=== PATIENT | male | born 1955 ===

== ENCOUNTER 2017-10-07 00:27 | Inpatient (IN) ==
[2017-10-07] MEDS ORDERED: ONDANSETRON 4 MG/2 ML VIAL IV PRN (01:35)
[2017-10-07] MEDS ORDERED: MORPHINE 2 MG/1 ML SYRINGE IV PRN (01:35)
[2017-10-07] MEDS: DEXTROSE 5% LACTATED RINGERS 1,000 ML IV SCH ×3 (03:11→21:00)
[2017-10-07 06:51] LABS: Basophils % 0.2 % (0.0-0.8); Eosinophils % 0.3 % (0.00-10.9); Hematocrit 39.7 VOL% (42.0-52.0); Immature Granulocytes % 0.4 %; Immature Granulocytes Absolute 0.04 #; Lymphocytes # 1.1 10*3/uL (1.4-4.0); Lymphocytes % 10.5 % (21.2-54.2); Mean Corpuscular HGB Conc 32.7 GM/DL (32-36); Mean Corpuscular Hemoglobin 30 PG (27-34); Mean Corpuscular Volume 91.9 FL (87-102); Mean Platelet Volume 10.7 FL (9.6-12.0); Monocytes # 1.1 10*3/uL (0.11-0.8); Monocytes % 10.9 % (1.7-12.7); Neutrophils % 77.7 % (38.7-73.9); Platelet Count 252 T/CUMM (130-400); Red Blood Count 4.32 MC/CUMM (3.8-5.5); White Blood Count 10.3 T/CUMM (4-12)
[2017-10-07] MEDS: metroNIDAZOLE INJ 500 MG in PREMIX 1 EACH IV SCH ×4 (07:15→23:34)
[2017-10-07] MEDS: cefOXitin 1,000 MG in SYRINGE 1 EACH IV SCH ×4 (07:17→23:31)
[2017-10-07 07:22] LABS: Albumin 3.5 G/DL (3.4-5.0); Bilirubin,Total 1.2 MG/DL (0.2-1.0); Calcium 8.8 MG/DL (8.5-10.1); Osmolality,Calculated 282.3 MOS/KG (273-304); Total Protein 7.8 G/DL (6.4-8.3)
[2017-10-07] MEDS: PANTOPRAZOLE 40 MG TABLET PO SCH (11:18)
[2017-10-08] MEDS: cefOXitin 1,000 MG in SYRINGE 1 EACH IV SCH ×3 (06:05→18:16)
[2017-10-08] MEDS: metroNIDAZOLE INJ 500 MG in PREMIX 1 EACH IV SCH ×3 (06:08→18:20)
[2017-10-08 07:17] LABS: PT Patient Result 10.7 SECS; Partial Thromboplastin Time 27.8 SECS (0-40)
[2017-10-08] MEDS: PANTOPRAZOLE 40 MG TABLET PO SCH (08:01)
[2017-10-08] MEDS: DEXTROSE 5% LACTATED RINGERS 1,000 ML IV SCH ×2 (08:01→16:52)
[2017-10-09] MEDS: cefOXitin 1,000 MG in SYRINGE 1 EACH IV SCH ×4 (00:37→17:37)
[2017-10-09] MEDS: metroNIDAZOLE INJ 500 MG in PREMIX 1 EACH IV SCH ×4 (00:38→17:41)
[2017-10-09] MEDS: DEXTROSE 5% LACTATED RINGERS 1,000 ML IV SCH ×6 (02:56→22:46)
[2017-10-09] MEDS: PANTOPRAZOLE 40 MG TABLET PO SCH (08:50)
[2017-10-10] MEDS: cefOXitin 1,000 MG in SYRINGE 1 EACH IV SCH ×3 (00:47→11:33)
[2017-10-10] MEDS: metroNIDAZOLE INJ 500 MG in PREMIX 1 EACH IV SCH ×3 (00:51→11:33)
[2017-10-10] MEDS: PANTOPRAZOLE 40 MG TABLET PO SCH (09:22)
[2017-10-10] MEDS: DEXTROSE 5% LACTATED RINGERS 1,000 ML IV SCH (09:43)
[2017-10-10 11:54] VITALS: BP 138/76
== END 2017-10-10 14:26 | disposition home or self-care (01) | DRG 390 ==
LOC: EDUNIT# → EDBD → N.ED 00:27 → N.EDINP 01:46 → N.3E 01:52
PROVIDERS: ADMIT Specialist; ATTEND Specialist